=== PATIENT | female | born 1970 | race African-American/Black ===

== ENCOUNTER 2018-03-16 08:11 | Emergency (ER) | payer MEDICAID, OTHER ==
[~2018-03-16] VITALS: Ht 170.2 cm; Wt 54.0 kg
[~2018-03-16 08:11] MED LIST: SERT25TA
[2018-03-16] MEDS ORDERED: PENICILLIN G BENZATHINE 1,200,000 UNITS/2ML SYR IM ONE (11:30)
[2018-03-16 12:37] VITALS: BP 142/81
== END 2018-03-16 12:37 | disposition home or self-care (01) ==
LOC: ER 08:33
DX: K04.7 Periapical abscess without sinus (principal); F17.200 Nicotine dependence, unspecified, uncomplicated; Z98.890 Other specified postprocedural states
CPT/HCPCS: 96372; 99283; J0561